=== PATIENT | female | born 1995 | race Two or more races ===

== ENCOUNTER 2021-05-12 09:51 | Emergency (ER) | payer SELFPAY ==
[~2021-05-12] VITALS: Ht 160 cm; Wt 90.7 kg
[2021-05-12 09:51] VITALS: BP 130/72
--- NOTE | 2021-05-12 10:45 | NUR ---
RAPID STREP OBTAINED AND SENT TO LAB.
[2021-05-12] MEDS ORDERED: PENI500T PO (11:14)
== END 2021-05-12 11:24 | disposition home or self-care (01) ==
LOC: ER 09:56
DX: J02.0 Streptococcal pharyngitis (principal)
CPT/HCPCS: 86403-TC